=== PATIENT | male | born 1980 | race Caucasian/White ===

== ENCOUNTER 2022-03-07 19:33 | Emergency (ER) | payer MEDICAID ==
[~2022-03-07] VITALS: Ht 188 cm; Wt 102.1 kg
[2022-03-07] MEDS ORDERED: HYDR-3980 PO (20:47)
--- NOTE | 2022-03-07 21:01 | NUR ---
Patient discharged to home in stable condition. Written and verbal after care instructions given. Patient verbalizes understanding of instructions. Stressed follow up or return to ER for worsening s/s.
[2022-03-07 21:31] VITALS: BP 115/71
== END 2022-03-07 21:01 | disposition home or self-care (01) ==
LOC: ER 19:33
DX: S39.012A Strain of muscle, fascia and tendon of lower back, initial encounter (principal); X50.9XXA Other and unspecified overexertion or strenuous movements or postures, initial encounter; Y93.54 Activity, bowling; Y92.39 Other specified sports and athletic area as the place of occurrence of the external cause
CPT/HCPCS: A4663

== ENCOUNTER 2022-05-27 14:33 | Emergency (ER) | payer MEDICAID ==
[~2022-05-27] VITALS: Ht 188 cm; Wt 93.9 kg
[~2022-05-27 14:33] MED LIST: HYDR-3980 PO
--- NOTE | 2022-05-27 16:40 | NUR ---
Gave pt d/c instructions, verbalized understanding.
== END 2022-05-27 17:36 | disposition home or self-care (01) ==
LOC: ER 14:33
DX: M79.671 Pain in right foot (principal); Z79.899 Other long term (current) drug therapy
CPT/HCPCS: 73630; A4663

== ENCOUNTER 2022-07-11 15:05 | Emergency (ER) | payer MEDICAID ==
[~2022-07-11] VITALS: Ht 180.3 cm; Wt 81.6 kg
--- NOTE | 2022-07-11 15:26 | NUR ---
Dr Hernández at the bedside for MSE.
--- NOTE | 2022-07-11 15:57 | NUR ---
Patient discharged to home in stable condition. Written and verbal after care instructions given, but patient refused paperwork. Patient verbalizes understanding of instructions. Stressed follow up or return to ER for worsening s/s.
[2022-07-11 15:58] VITALS: BP 120/77
== END 2022-07-11 15:59 | disposition home or self-care (01) ==
LOC: ER 15:05
DX: S63.91XA Sprain of unspecified part of right wrist and hand, initial encounter (principal); S60.041A Contusion of right ring finger without damage to nail, initial encounter; W21.06XA Struck by volleyball, initial encounter; Y93.68 Activity, volleyball (beach) (court); Y92.89 Other specified places as the place of occurrence of the external cause; Y99.8 Other external cause status
CPT/HCPCS: 73130; A4663

== ENCOUNTER 2022-11-13 12:49 | Emergency (ER) | payer MEDICAID ==
[~2022-11-13] VITALS: Ht 188 cm; Wt 90.7 kg
[2022-11-13] MEDS ORDERED: IBUPROFEN 800 MG TABLET ONE (13:43)
[2022-11-13] MEDS ORDERED: IBUPROFEN 800 MG TABLET PO ONE (13:45)
[2022-11-13] MEDS ORDERED: OXYC5TAB3 PO (14:45)
[2022-11-13 16:04] VITALS: BP 118/63; O2SAT 100
== END 2022-11-13 14:50 | disposition home or self-care (01) ==
LOC: ER 12:49
DX: M23.91 Unspecified internal derangement of right knee (principal)
CPT/HCPCS: 73562; A4663

== ENCOUNTER 2024-04-25 12:30 | Emergency (ER) | payer MEDICAID, MEDICARE ==
[~2024-04-25] VITALS: Ht 182.9 cm; Wt 84.4 kg
[~2024-04-25 12:30] MED LIST changes: -HYDR-3980 PO; +OXYC5TAB3 PO
[2024-04-25] MEDS ORDERED: KETOROLAC TROMETHAMINE 30 MG INJ ONE (13:09)
[2024-04-25] MEDS: KETOROLAC TROMETHAMINE 30 MG INJ IM ONE (13:14)
[2024-04-25 13:16] VITALS: BP 126/72; O2SAT 99
== END 2024-04-25 13:17 | disposition home or self-care (01) ==
LOC: ER 12:46
DX: S86.811A Strain of other muscle(s) and tendon(s) at lower leg level, right leg, initial encounter (principal); Z88.7 Allergy status to serum and vaccine; Z87.19 Personal history of other diseases of the digestive system; X58.XXXA Exposure to other specified factors, initial encounter; Y93.73 Activity, racquet and hand sports; Y92.89 Other specified places as the place of occurrence of the external cause; Y99.8 Other external cause status
CPT/HCPCS: 99283; 96372; J1885; A4606; A4663